=== PATIENT | female | born 1950 | race Caucasian/White ===

== ENCOUNTER → 2024-05-15 | Outpatient (CLI) | payer MEDICARE, MEDICAID, SELFPAY ==
[2024-05-15 13:01] LABS: Basophils # (Auto) 0.1 Thou/mm3 (0.0-0.2); Basophils % (Auto) 1 % (0-2.5); Eosinophils # (Auto) 0.1 Thou/mm3 (0.0-0.5); Eosinophils % (Auto) 2 % (0-10); Hematocrit 38.5 % (36.0-46.0); Hemoglobin 11.7 g/dL (12.0-16.0); Immature Granulocytes % (Auto) 0 % (0-0); Immature Granulocytes Auto 0.01 Thou/mm3 (0.00-0.00); Immature Reticulocyte Fraction 24.7 % (3.0-15.9); Lymphocytes # (Auto) 1.1 Thou/mm3 (1.0-4.8); Lymphocytes % (Auto) 27 % (10-50); Mean Corpuscular HGB Conc 30.4 g/dl (31.0-37.0); Mean Corpuscular Hemoglobin 28.3 pg (25.0-35.0); Mean Corpuscular Volume 93 fL (80-100); Monocytes # (Auto) 0.4 Thou/mm3 (0.0-0.8); Monocytes % (Auto) 9 % (0-12); Neutrophils # (Auto) 2.5 Thou/mm3 (1.8-7.7); Neutrophils % (Auto) 61 % (37-80); Nucleated Red Blood Cell % 0 /100 WBC (0); Platelet Count 316 Thou/mm3 (140-440); RDW Standard Deviation 47.9 fL (36.4-46.3); Red Blood Count 4.14 Miln/mm3 (4.00-5.20); Reticulocyte Absolute Auto 124.6 Biln/L (25.0-75.0); Reticulocyte Hgb Content 31.5 pg (28.0-35.0); White Blood Count 4.2 Thou/mm3 (3.6-11.0)
[2024-05-15 13:17] LABS: Alanine Aminotransferase 20 U/L (10-49); Albumin, Serum 4.7 gm/dL (3.4-4.8); Albumin/Globulin Ratio 2.4 (1.2-2.2); Alkaline Phosphatase 84 U/L (46-116); Anion Gap 6 (7-16); Aspartate Amino Transferase 22 U/L (0-34); BUN/Creatinine Ratio 16 Ratio (12-20); Bilirubin,Total 0.4 mg/dL (0.3-1.2); Blood Urea Nitrogen 13 mg/dL (9-23); Calcium 9.7 mg/dL (8.3-10.6); Calcium (Corrected) 9.7 mg/dL (8.5-10.1); Carbon Dioxide 25.8 mMol/L (20.0-31.0); Chloride 108 mMol/L (98-107); Creatinine (Component) 0.8 mg/dL (0.6-1.3); Glucose 121 mg/dL (74-106); Osmolality,Calculated 280 (275-295); Potassium 4.1 mMol/L (3.4-5.1); Sodium 140 mMol/L (136-145); Total Protein 6.7 gm/dL (5.7-8.2); eGFR > 60 See Note
[2024-05-15 13:21] LABS: Folate 16.35 ng/mL (>5.38); Vitamin B12 289 pg/mL (211-911)
[2024-05-15 14:04] LABS: Ferritin 22 ng/mL (7.3-270.7); Total Iron Binding Capacity 380 mcg/dL (250-425)
[2024-05-15 14:13] LABS: Iron 26 mcg/dL (50-170); Percent Iron Saturation 6 % (20-55); Unsaturated Iron Binding 354 (225-295)
== END | disposition home or self-care (01) ==
LOC: SCTO 12:04
PROVIDERS: PCP Physician Assistant; Referring Provider Nurse Practitioner Family; Visit Provider Nurse Practitioner Family
DX: D50.9 Iron deficiency anemia, unspecified (principal)
CPT/HCPCS: 36415; 80053; 82607; 82728; 82746; 83540; 83550; 85025; 85046

== ENCOUNTER 2024-05-19 14:54 | Outpatient (RCR) | payer MEDICARE, MEDICAID, SELFPAY | END 2024-05-20 23:59 | disposition home or self-care (01) | LOC: SCTC 14:54 | PROVIDERS: PCP Physician Assistant; Referring Provider Physician Assistant; Visit Provider Nurse Practitioner Family | DX: D50.9 Iron deficiency anemia, unspecified (principal); Z87.19 Personal history of other diseases of the digestive system; D73.4 Cyst of spleen | CPT/HCPCS: 99212; G0463 ==

== ENCOUNTER → 2024-06-02 | Outpatient (CLI) | payer MEDICARE, MEDICAID, SELFPAY ==
[2024-06-02 13:23] LABS: Basophils # (Auto) 0.1 Thou/mm3 (0.0-0.2); Basophils % (Auto) 2 % (0-2.5); Eosinophils # (Auto) 0.1 Thou/mm3 (0.0-0.5); Eosinophils % (Auto) 1 % (0-10); Hematocrit 28.9 % (36.0-46.0); Immature Granulocytes % (Auto) 0 % (0-0); Immature Granulocytes Auto 0.01 Thou/mm3 (0.00-0.00); Immature Reticulocyte Fraction 31.9 % (3.0-15.9); Lymphocytes # (Auto) 1.3 Thou/mm3 (1.0-4.8); Lymphocytes % (Auto) 31 % (10-50); Mean Corpuscular HGB Conc 30.1 g/dl (31.0-37.0); Mean Corpuscular Hemoglobin 27.4 pg (25.0-35.0); Mean Corpuscular Volume 91 fL (80-100); Monocytes # (Auto) 0.5 Thou/mm3 (0.0-0.8); Monocytes % (Auto) 11 % (0-12); Neutrophils # (Auto) 2.4 Thou/mm3 (1.8-7.7); Neutrophils % (Auto) 55 % (37-80); Nucleated Red Blood Cell % 0 /100 WBC (0); Platelet Count 362 Thou/mm3 (140-440); RDW Standard Deviation 46.5 fL (36.4-46.3); Red Blood Count 3.18 Miln/mm3 (4.00-5.20); Reticulocyte % (Auto) 3.7 % (0.5-1.5); Reticulocyte Absolute Auto 117.7 Biln/L (25.0-75.0); Reticulocyte Hgb Content 25.1 pg (28.0-35.0); White Blood Count 4.4 Thou/mm3 (3.6-11.0)
[2024-06-02 13:27] LABS: Hemoglobin 8.7 g/dL (12.0-16.0)
[2024-06-02 13:38] LABS: Alanine Aminotransferase 16 U/L (10-49); Albumin, Serum 4.5 gm/dL (3.4-4.8); Albumin/Globulin Ratio 2.1 (1.2-2.2); Alkaline Phosphatase 70 U/L (46-116); Anion Gap 7 (7-16); Aspartate Amino Transferase 21 U/L (0-34); BUN/Creatinine Ratio 14 Ratio (12-20); Bilirubin,Total 0.4 mg/dL (0.3-1.2); Blood Urea Nitrogen 13 mg/dL (9-23); Calcium 9.6 mg/dL (8.3-10.6); Calcium (Corrected) 9.6 mg/dL (8.5-10.1); Carbon Dioxide 26.7 mMol/L (20.0-31.0); Chloride 107 mMol/L (98-107); Creatinine (Component) 0.9 mg/dL (0.6-1.3); Globulin 2.1 gm/dL (2.3-3.5); Glucose 93 mg/dL (74-106); Osmolality,Calculated 281 (275-295); Potassium 4.7 mMol/L (3.4-5.1); Sodium 141 mMol/L (136-145); Total Protein 6.6 gm/dL (5.7-8.2); eGFR > 60 See Note
[2024-06-02 18:38] LABS: Folate 14.33 ng/mL (>5.38); Vitamin B12 277 pg/mL (211-911)
[2024-06-02 20:57] LABS: Ferritin 4 ng/mL (7.3-270.7); Iron 12 mcg/dL (50-170); Percent Iron Saturation 2 % (20-55); Total Iron Binding Capacity 413 mcg/dL (250-425); Unsaturated Iron Binding 401 (225-295)
== END | disposition home or self-care (01) ==
LOC: SCTO 12:33
PROVIDERS: PCP Physician Assistant; Referring Provider Nurse Practitioner Family; Visit Provider Nurse Practitioner Family
DX: D50.9 Iron deficiency anemia, unspecified (principal)
CPT/HCPCS: 36415; 80053; 82607; 82728; 82746; 83540; 83550; 85025; 85046

== ENCOUNTER 2024-06-10 09:58 | Outpatient (RCR) | payer MEDICARE, MEDICAID, SELFPAY | END 2024-06-20 23:59 | disposition home or self-care (01) | LOC: SCTC 09:58 | PROVIDERS: PCP Physician Assistant; Referring Provider Physician Assistant; Visit Provider Nurse Practitioner Family | DX: D50.9 Iron deficiency anemia, unspecified (principal) | CPT/HCPCS: 96365; 96375; A4216; J2919; J3490; J7040; J7050; Q0138 ==

== ENCOUNTER → 2024-08-11 | Outpatient (CLI) | payer MEDICARE, MEDICAID, SELFPAY ==
[2024-08-11 13:49] LABS: Basophils # (Auto) 0.1 Thou/mm3 (0.0-0.2); Basophils % (Auto) 2 % (0-2.5); Eosinophils # (Auto) 0.1 Thou/mm3 (0.0-0.5); Eosinophils % (Auto) 3 % (0-10); Hematocrit 31.6 % (36.0-46.0); Hemoglobin 9.3 g/dL (12.0-16.0); Immature Granulocytes % (Auto) 0 % (0-0); Immature Granulocytes Auto 0.01 Thou/mm3 (0.00-0.00); Lymphocytes % (Auto) 28 % (10-50); Mean Corpuscular HGB Conc 29.4 g/dl (31.0-37.0); Mean Corpuscular Hemoglobin 24.7 pg (25.0-35.0); Mean Corpuscular Volume 84 fL (80-100); Monocytes # (Auto) 0.3 Thou/mm3 (0.0-0.8); Monocytes % (Auto) 9 % (0-12); Neutrophils # (Auto) 2.1 Thou/mm3 (1.8-7.7); Neutrophils % (Auto) 59 % (37-80); Nucleated Red Blood Cell % 0 /100 WBC (0); Platelet Count 418 Thou/mm3 (140-440); RDW Standard Deviation 50.5 fL (36.4-46.3); Red Blood Count 3.76 Miln/mm3 (4.00-5.20); Reticulocyte % (Auto) 2.4 % (0.5-1.5); Reticulocyte Absolute Auto 89.9 Biln/L (25.0-75.0); Reticulocyte Hgb Content 19.2 pg (28.0-35.0); White Blood Count 3.6 Thou/mm3 (3.6-11.0)
[2024-08-11 14:13] LABS: Ferritin 3 ng/mL (7.3-270.7); Iron 10 mcg/dL (50-170); Percent Iron Saturation 2 % (20-55); Total Iron Binding Capacity 415 mcg/dL (250-425); Unsaturated Iron Binding 405 (225-295)
[2024-08-11 14:15] LABS: Folate 16.73 ng/mL (>5.38)
[2024-08-11 14:19] LABS: Alanine Aminotransferase 19 U/L (10-49); Albumin, Serum 4.5 gm/dL (3.4-4.8); Albumin/Globulin Ratio 2.3 (1.2-2.2); Alkaline Phosphatase 68 U/L (46-116); Anion Gap 7 (7-16); Aspartate Amino Transferase 22 U/L (0-34); BUN/Creatinine Ratio 13 Ratio (12-20); Bilirubin,Total 0.4 mg/dL (0.3-1.2); Blood Urea Nitrogen 10 mg/dL (9-23); Calcium 8.9 mg/dL (8.3-10.6); Calcium (Corrected) 8.9 mg/dL (8.5-10.1); Chloride 108 mMol/L (98-107); Creatinine (Component) 0.8 mg/dL (0.6-1.3); Glucose 104 mg/dL (74-106); Osmolality,Calculated 280 (275-295); Potassium 4.7 mMol/L (3.4-5.1); Sodium 141 mMol/L (136-145); Total Protein 6.5 gm/dL (5.7-8.2); eGFR > 60 See Note
== END | disposition home or self-care (01) ==
LOC: SCTO 12:36
PROVIDERS: PCP Physician Assistant; Referring Provider Nurse Practitioner Family; Visit Provider Nurse Practitioner Family
DX: D50.9 Iron deficiency anemia, unspecified (principal)
CPT/HCPCS: 36415; 80053; 82728; 82746; 83540; 83550; 85025; 85046

== ENCOUNTER 2024-08-14 09:57 | Outpatient (RCR) | payer MEDICARE, MEDICAID, SELFPAY | END 2024-08-18 23:59 | disposition home or self-care (01) | LOC: SCTC 09:57 | PROVIDERS: PCP Physician Assistant; Referring Provider Nurse Practitioner Family; Visit Provider Nurse Practitioner Family | DX: D50.9 Iron deficiency anemia, unspecified (principal); E53.8 Deficiency of other specified B group vitamins; Z87.19 Personal history of other diseases of the digestive system | CPT/HCPCS: 99212; G0463 ==

== ENCOUNTER 2024-09-15 13:01 | Outpatient (RCR) | payer MEDICARE, MEDICAID, SELFPAY ==
[2024-09-01 14:25] LABS: Basophils # (Auto) 0.1 Thou/mm3 (0.0-0.2); Basophils % (Auto) 1 % (0-2.5); Eosinophils # (Auto) 0.1 Thou/mm3 (0.0-0.5); Eosinophils % (Auto) 2 % (0-10); Hematocrit 30.1 % (36.0-46.0); Immature Granulocytes % (Auto) 1 % (0-0); Immature Granulocytes Auto 0.04 Thou/mm3 (0.00-0.00); Lymphocytes # (Auto) 0.9 Thou/mm3 (1.0-4.8); Lymphocytes % (Auto) 15 % (10-50); Mean Corpuscular HGB Conc 28.6 g/dl (31.0-37.0); Mean Corpuscular Hemoglobin 25.7 pg (25.0-35.0); Mean Corpuscular Volume 90 fL (80-100); Monocytes # (Auto) 0.5 Thou/mm3 (0.0-0.8); Monocytes % (Auto) 8 % (0-12); Neutrophils # (Auto) 4.3 Thou/mm3 (1.8-7.7); Neutrophils % (Auto) 73 % (37-80); Nucleated Red Blood Cell % 0 /100 WBC (0); Platelet Count 371 Thou/mm3 (140-440); RDW Standard Deviation 55.8 fL (36.4-46.3); Red Blood Count 3.35 Miln/mm3 (4.00-5.20); White Blood Count 5.9 Thou/mm3 (3.6-11.0)
[2024-09-01 14:26] LABS: Hemoglobin 8.6 g/dL (12.0-16.0)
[2024-09-08 14:41] LABS: Basophils # (Auto) 0.1 Thou/mm3 (0.0-0.2); Basophils % (Auto) 1 % (0-2.5); Eosinophils # (Auto) 0.1 Thou/mm3 (0.0-0.5); Eosinophils % (Auto) 2 % (0-10); Hematocrit 29.2 % (36.0-46.0); Hemoglobin 8.7 g/dL (12.0-16.0); Immature Granulocytes % (Auto) 1 % (0-0); Immature Granulocytes Auto 0.03 Thou/mm3 (0.00-0.00); Lymphocytes % (Auto) 20 % (10-50); Mean Corpuscular HGB Conc 29.8 g/dl (31.0-37.0); Mean Corpuscular Hemoglobin 27.5 pg (25.0-35.0); Mean Corpuscular Volume 92 fL (80-100); Monocytes # (Auto) 0.5 Thou/mm3 (0.0-0.8); Monocytes % (Auto) 9 % (0-12); Neutrophils # (Auto) 3.4 Thou/mm3 (1.8-7.7); Neutrophils % (Auto) 67 % (37-80); Nucleated Red Blood Cell % 0 /100 WBC (0); Platelet Count 370 Thou/mm3 (140-440); RDW Standard Deviation 86.1 fL (36.4-46.3); Red Blood Count 3.16 Miln/mm3 (4.00-5.20); White Blood Count 5.1 Thou/mm3 (3.6-11.0)
== END 2024-09-17 23:59 | disposition home or self-care (01) ==
LOC: SCTC 13:01
PROVIDERS: PCP Physician Assistant; Referring Provider Physician Assistant; Visit Provider Nurse Practitioner Family
DX: D50.9 Iron deficiency anemia, unspecified (principal); E53.8 Deficiency of other specified B group vitamins; D73.4 Cyst of spleen; Z87.19 Personal history of other diseases of the digestive system
CPT/HCPCS: 85025; 96365; 96372; 96375; A4216; J2919; J3420; J3490; J7040; J7050; Q0138

== ENCOUNTER → 2024-09-23 | Outpatient (CLI) | payer MEDICARE, MEDICAID, SELFPAY ==
[2024-09-23 10:32] LABS: Basophils # (Auto) 0.1 Thou/mm3 (0.0-0.2); Basophils % (Auto) 2 % (0-2.5); Eosinophils # (Auto) 0.1 Thou/mm3 (0.0-0.5); Eosinophils % (Auto) 2 % (0-10); Hematocrit 36.4 % (36.0-46.0); Hemoglobin 11.3 g/dL (12.0-16.0); Immature Granulocytes % (Auto) 0 % (0-0); Immature Granulocytes Auto 0.01 Thou/mm3 (0.00-0.00); Immature Reticulocyte Fraction 11.2 % (3.0-15.9); Lymphocytes # (Auto) 0.8 Thou/mm3 (1.0-4.8); Lymphocytes % (Auto) 27 % (10-50); Mean Corpuscular Hemoglobin 30.4 pg (25.0-35.0); Mean Corpuscular Volume 98 fL (80-100); Monocytes # (Auto) 0.3 Thou/mm3 (0.0-0.8); Monocytes % (Auto) 10 % (0-12); Neutrophils # (Auto) 1.8 Thou/mm3 (1.8-7.7); Neutrophils % (Auto) 59 % (37-80); Nucleated Red Blood Cell % 0 /100 WBC (0); Platelet Count 293 Thou/mm3 (140-440); RDW Standard Deviation 78.3 fL (36.4-46.3); Red Blood Count 3.72 Miln/mm3 (4.00-5.20); Reticulocyte % (Auto) 4.5 % (0.5-1.5); Reticulocyte Absolute Auto 166.3 Biln/L (25.0-75.0); Reticulocyte Hgb Content 34.9 pg (28.0-35.0)
[2024-09-23 10:39] LABS: Glucose Estimated Average 77 mg/dL (80-131); Hemoglobin A1C 4.3 % Hgb (4.8-6.0)
[2024-09-23 10:53] LABS: Folate 14.66 ng/mL (>5.38)
[2024-09-23 10:55] LABS: Ferritin 179 ng/mL (7.3-270.7); Iron 53 mcg/dL (50-170); Percent Iron Saturation 16 % (20-55); Total Iron Binding Capacity 314 mcg/dL (250-425); Unsaturated Iron Binding 261 (225-295)
[2024-09-23 11:00] LABS: Alanine Aminotransferase 32 U/L (10-49); Albumin, Serum 4.3 gm/dL (3.4-4.8); Albumin/Globulin Ratio 2.2 (1.2-2.2); Alkaline Phosphatase 66 U/L (46-116); Anion Gap 8 (7-16); Aspartate Amino Transferase 37 U/L (0-34); BUN/Creatinine Ratio 14 Ratio (12-20); Bilirubin,Total 0.5 mg/dL (0.3-1.2); Blood Urea Nitrogen 11 mg/dL (9-23); Calcium 8.4 mg/dL (8.3-10.6); Calcium (Corrected) 8.4 mg/dL (8.5-10.1); Carbon Dioxide 25.7 mMol/L (20.0-31.0); Chloride 110 mMol/L (98-107); Cholesterol 206 mg/dL (132-200); Creatinine (Component) 0.8 mg/dL (0.6-1.3); Glucose 109 mg/dL (74-106); HDL Cholesterol 51 mg/dL (40-60); LDL Cholesterol,Calculated 117 mg/dL (0-130); Osmolality,Calculated 287 (275-295); Sodium 144 mMol/L (136-145); Thyroid Stimulating Hormone 11.76 uIU/mL (0.55-4.78); Total Protein 6.3 gm/dL (5.7-8.2); Triglycerides 190 mg/dL (30-150); eGFR > 60 See Note
== END | disposition home or self-care (01) ==
LOC: COPL 09:50
PROVIDERS: PCP Physician Assistant; Referring Provider Physician Assistant; Visit Provider Nurse Practitioner Family
DX: Z00.00 Encounter for general adult medical examination without abnormal findings (principal); I10 Essential (primary) hypertension; D64.9 Anemia, unspecified; R53.83 Other fatigue; D50.9 Iron deficiency anemia, unspecified
CPT/HCPCS: 36415; 80053; 80061; 82728; 82746; 83036; 83540; 83550; 84443; 85025; 85046

== ENCOUNTER 2024-10-14 10:10 | Outpatient (RCR) | payer MEDICARE, MEDICAID, SELFPAY | END 2024-10-18 23:59 | disposition home or self-care (01) | LOC: SCTC 10:10 | PROVIDERS: PCP Physician Assistant; Referring Provider Physician Assistant; Visit Provider Nurse Practitioner Family | DX: D50.9 Iron deficiency anemia, unspecified (principal); E53.8 Deficiency of other specified B group vitamins; E03.9 Hypothyroidism, unspecified; D73.4 Cyst of spleen; Z87.19 Personal history of other diseases of the digestive system | CPT/HCPCS: 99212; G0463 ==

== ENCOUNTER 2024-10-17 18:28 | Emergency (ER) | payer MEDICARE, MEDICAID, SELFPAY ==
[2024-10-17 18:37] VITALS: BP 156/86; PULSE 79; RESP 18; TEMP 36.6; O2SAT 95; BMI 35.3
[2024-10-17 18:47] VITALS: PULSE 72; RESP 20
--- NOTE | 2024-10-17 18:50 | EDNOTE_ITS ---
Upper Extremity Injury RME/HPI General Chief Complaint: Extremity Injury, Upper Stated Complaint: RIGHT ARM PAIN,FALL Time Seen by Provider: 10/17/24 18:50 Arrival date/time: 10/17/24 18:28 RME / HPI RME / HPI narrative: This section includes all my notes and documentations, including HPI, PE, and ED course. Nitish Adkins MD HPI: 74 y/o female with Hx of Arthritis, Osteoporosis, Degenerative Disk Disease, Hypothyroidism, and Anemia BIBA from [facility] pool here with right wrist pain s/p fall x approximately 1 hour ago. Patient was walking down some steps to the pool when her sandal rolled causing her to trip and fall. Landed on her right arm. No head injury. No loss of conscious. No other injury. No other complaints. ROS: All negative except as documented in HPI. Physical Exam: General: Alert and oriented. Eyes: Conjunctivae and lids clear. ENT: No signs of head trauma. Neck: Supple. No tenderness. Heart: RRR. Lungs: No respiratory distress. Good air movement. No rhonchi, wheezing, rales. Chest: No tenderness. Abdomen: Soft and nontender. Normal bowel sounds. No distension. No rebound or guarding. Back: No tenderness. Skin: Warm and dry. Neuro: Alert and oriented X 3. Cranial Nerves II-XII grossly intact. No peripheral motor deficits. Musculoskeletal: Remarkable for right forearm/wrist tenderness and right foot tenderness and left shoulder tenderness. All other major joints and bones are not tender with no limited ROM. I reviewed EMS notes. I reviewed all diagnostic test results. My interpretation of the left foot x-ray is no acute fracture. My interpretation of the left shoulder x-ray is no acute fracture. My interpretation of the right forearm x-ray is fracture of distal radius. At this point, diagnoses include fracture of right wrist. Treatment here included Tylenol with Codeine, Splint. Significant improvement noted. Recommended more outpatient orthopedic treatment. Based on my best medical judgment, made decision no further evaluation or treatment indicated at this time. Patient understands and agrees to the discharge instructions customized and printed, see below. Discharge Instructions from Dr. Adkins printed for you: 1. Unfortunately, you broke your right wrist. 2. Wear the arm sling and keep the splint intact and clean and dry until cleared by a doctor taking care of you. 3. Elevate above the heart level for 3 days is much as possible. When laying on your back, place a pillow under chest and place your wrist on the pillow. 4. Ibuprofen 200 mg every 6-8 hours today and tomorrow to decrease inflammation then as needed. 5. Tylenol with codeine for pain. 6. See a private doctor on 10/20/2024. Ask for a referral to see orthopedic surgeon for further care. 7. Seek immediate medical care with intolerable pain, if you can't move your fingers, your fingers turn cold and blue, or with any concerns. Nitish Adkins MD Related Data Home Medications ?Medication ?Instructions ?Recorded ?Confirmed hydrocodone 10 mg-acetaminophen 1 tab PO Q6H PRN Pain #0 tabs 06/15/15 03/03/24 325 mg tablet Held on 03/03/24. Instructions: Resume on 03/04/24. omeprazole 40 mg capsule,delayed 40 mg PO QDAY 8 03/03/24 release levothyroxine 137 mcg tablet 112 mcg PO QDAY 05/19/19 03/03/24 (Unithroid) ondansetron 8 mg disintegrating 8 mg PO Q8H PRN Nausea And Vomiting 05/19/19 03/03/24 tablet ferrous sulfate 325 mg (65 mg 325 mg PO EVERYOTHERDAY 03/03/24 03/03/24 iron) tablet (FeroSul) linaclotide 290 mcg capsule 290 mcg PO QDAY PRN Consti pation 03/03/24 03/03/24 (Linzess) Previous Rx's ?Medication ?Instructions ?Recorded acetaminophen 300 mg-codeine 30 mg 2 tab PO Q8H PRN pa in #20 tabs 10/17/24 tablet Allergies Allergy/AdvReac Type Severity Reaction Status Date / Time wheat Allergy Severe Hives Verified 10/17/24 18:47 Review of Systems Review of Systems Systems Reviewed: All systems reviewed, normal except as documented Past Medical History Past Medical History NEUROLOGIC: Positive Transient Ischemic Attacks (TIA) CARDIAC: Positive Cardiac Disorders, Cardiac Arrhythmia, Hypercholesterolemia and Hypertension RESPIRATORY: Positive Chronic Obstructive Pulmonary Disease (COPD) and Sleep Apnea GASTROINTESTINAL: Positive Gastrointestinal Disorders, Hiatal Hernia, Gastroesophageal Reflux Disease and Obesity REPRODUCTIVE: Positive Previous Pregnancies (5) MUSCULOSKELETAL: Positive Musculoskeletal Disorders, Arthritis, Osteoporosis, Degenerative Disk Disease and Fractures (patella) ENDOCRINE: Positive Endocrine Disorders and Hypothyroidism HEMATOLOGIC: Positive Blood Disorders and Anemia PSYCHO/SOCIAL: Positive Depression, Anxiety and Post Traumatic Stress Disorder OTHER HISTORY: Positive Hospitalization and Blood Transfusions Family History FAMILY HISTORY: Positive Family Respiratory Disorders, Family Cancer and Family Surgery Surgical History SURGICAL: Positive Thyroidectomy, Abdominal Surgery, Open Reduction Internal Fixation, Hysterectomy and Tubal Ligation Social History SMOKING STATUS: Former smoker ED Exam Narrative Physical exam: Refer to HPI above Course Quality Measures none Orders Category Date Time Status Splint / Immobilizer STAT Care 10/17/24 21:10 Active XR foot comp LT min 3V Stat Exams 10/17/24 18:51 Completed XR forearm RT 2V Stat Exams 10/17/24 18:53 Completed XR shoulder LT min 2V Stat Exams 10/17/24 18:52 Completed ACETAMINOPHEN w/COD 300-30 [Tylenol w/Cod #3] Med 10/17/24 18:51 Discontinued 2 tab PO X1 ONE Vital Signs Vital signs: Vital Signs Temperature 97.9 F 10/17/24 18:37 Pulse Rate 79 10/17/24 18:37 Respiratory Rate 18 10/17/24 18:37 Blood Pressure 156/86 H 10/17/24 18:37 Pulse Oximetry (%) 95 10/17/24 18:37 Oxygen Delivery Method Room Air 10/17/24 18:37 Extremity Injury MDM Narrative MDM Narrative:: Scribe Attestation: Zoë Lara am scribing for and in the presence of Dr. Adkins. Provider Notation: Although this document has been carefully reviewed, there may still be some phonetic and other typographical errors.? These errors are purely grammatical due to imperfections in the software program and should not be construed in any way to? compromise the substance of the patient's medical care during this visit. 74 y/o female with Hx of Arthritis, Osteoporosis, Degenerative Disk Disease, Hypothyroidism, and Anemia BIBA from [facility] pool presents to ED c/o right wrist, left foot second digit, and left shoulder pain s/p fall x approximately 1 hour ago. Patient was walking down some steps to the pool when her sandal rolled causing her to trip and fall. No other complaint. Patient data External records reviewed:: [facility] previous records (Reviewed prior ED records from 11/01/23. Patient was seen for Abdominal pain.) and EMS form Clinical information provided by:: patient and EMS Social determinants that could affect healthcare access:: none Patient has the following chronic illnesses:: Transient Ischemic Attacks, Cardiac Arrhythmia, Hypercholesterolemia, Hypertens ion, Chronic Obstructive Pulmonary Disease, Sleep Apnea, Hiatal Hernia, Gastroesophageal Reflux Disease, Obesity, Arthritis, Osteoporosis, Degenerative Disk Disease, Hypothyroidism, Anemia, Depression, Anxiety and Post Traumatic Stress Disorder How is presenting disease/condition affected by chronic disease/condition?: exacerbated by Evaluation data The following diagnostics were reviewed and interpreted by me:: radiology exam(s) Lab and/or radiology exams considered but not ordered:: None Interpretation Summary: I reviewed all diagnostic test results. My interpretation of the left foot x-ray is no acute fracture. My interpretation of the left shoulder x-ray is no acute fracture. My interpretation of the right forearm x-ray is fracture of distal radius. Medications / Prescriptions Medications or Prescriptions considered but not ordered:: None Medication administrations:: Medication Administration History Discontinued Medications Acetaminophen/Codeine Phosphate (Acetaminophen W/Cod 300-30 Tablet) 2 tab PO X1 ONE Stop: 10/17/24 18:52 Last Admin: 10/17/24 19:31 Dose: 2 tab Documented By: EF Tylenol with Codeine Consultations Consultation(s) initiated? (list below): No Diagnosis Upper Extremity Injury Differential Diagnosis: sprain and strain of wrist, fracture of wrist, fracture of hand, dislocation of shoulder, fracture of humer us and fracture of clavicle Most likely diagnosis given after review of the tests above:: Fracture of right wrist Admission Indicated Admission indicated?: not indicated Explain why admission is indicated or not indicated:: With no injury needing emergent intervention, there was no indication for admission. Admission Request Was there a request for admission?: No Disposition Plan Disposition Plan: Discharge Discharge Attestation Discharge Attestation: The patient and all family members were given an opportunity to ask questions and understood the discharge instructions. Discharge instructions specifically effects, indications for sooner follow up or return to the emergency department, and the expected course of current diagnosis. Patient condition: Stable Discharge Plan Plan Patient Disposition: HOME (Self Care) Prescriptions/Referrals Prescriptions/Med Rec: New acetaminophen-codeine 300-30 mg tablet 2 tab PO Q8H MDD 6 PRN (Reason: pain) Qty: 20 0RF No Action hydrocodone-acetaminophen 10-325 mg Tablet 1 tab PO Q6H PRN (Reason: Pain) Qty: 0 omeprazole 40 mg Capsule,Delayed Release(Dr/Ec) 40 mg PO QDAY levothyroxine [Unithroid] 137 mcg tablet 112 mcg PO QDAY ondansetron 8 mg tablet,disintegrating 8 mg PO Q8H PRN (Reason: Nausea And Vomiting) ferrous sulfate [FeroSul] 325 mg (65 mg iron) tablet 325 mg PO EVERYOTHERDAY Linzess 290 mcg capsule 290 mcg PO QDAY PRN (Reason: Constipation) Problem List Clinical Impression: Fracture of right wrist Patient/Caregiver Discharge Instructions Discharge Activity: activity as tolerated Education Materials: ED Fracture, Wrist, General Additional Instructions: Discharge Instructions from Dr. Adkins printed for you: 1. Unfortunately, you broke your right wrist. 2. Wear the arm sling and keep the splint intact and clean and dry until cleared by a doctor taking care of you. 3. Elevate above the heart level for 3 days is much as possible. When laying on your back, place a pillow under chest and place your wrist on the pillow. 4. Ibuprofen 200 mg every 6-8 hours today and tomorrow to decrease inflammation then as needed. 5. Tylenol with codeine for pain. 6. See a private doctor on 10/20/2024. Ask for a referral to see orthopedic surgeon for further care. 7. Seek immediate medical care with intolerable pain, if you can't move your fingers, your fingers turn cold and blue, or with any concerns. Print Language: Argentine Stand Alone Forms: [facility] Award Info., Patient Portal Info Letter
--- NOTE | 2024-10-17 18:51 | XR_ITS ---
Examination: Foot, left, 3 views Technique: AP, oblique, lateral views foot, 3 views Date and time of exam: October 17, 2024 1931 hours INDICATIONS: Onset left foot pain today. FINDINGS: Moderate osteopenia No acute fracture No dislocation IMPRESSION: No acute fracture
--- NOTE | 2024-10-17 18:52 | XR_ITS ---
Examination: Shoulder,left, 3 views Technique: Shoulder AP internal rotation, AP external rotation, Y view shoulder, 3 views Exam date and time :October 17, 2024 1937 hours INDICATIONS: Patient fell today with individually, shoulder pain. FINDINGS: No shoulder fracture or dislocation No AC joint separation Impression: No shoulder fracture or dislocation
--- NOTE | 2024-10-17 18:53 | XR_ITS ---
Examination: Forearm, right, 2 views. Technique: Forearm, AP, lateral 2 views Date and time of exam: October 17, 2024 1931 hours INDICATIONS: Patient fell today with a fusiform, forearm pain. FINDINGS: Acute comminuted impacted intra-articular fracture distal radial metaphysis Ulna appears intact IMPRESSION: Acute comminuted impacted intra-articular fractures distal radial metaphysis
[2024-10-17] MEDS: ACETAMINOPHEN w/COD 300-30 TABLET 2 TAB PO (19:31)
[2024-10-17 23:05] VITALS: BP 148/95; PULSE 88; RESP 16; O2SAT 96
== END 2024-10-17 23:05 | disposition home or self-care (01) ==
LOC: SERX 10-18 03:54
PROVIDERS: Emergency Provider Emergency Medicine
DX: S52.571A Other intraarticular fracture of lower end of right radius, initial encounter for closed fracture (principal); M79.672 Pain in left foot; M25.512 Pain in left shoulder; W10.8XXA Fall (on) (from) other stairs and steps, initial encounter; Y93.01 Activity, walking, marching and hiking; Y92.34 Swimming pool (public) as the place of occurrence of the external cause
CPT/HCPCS: 29125; 73030; 73090; 73630; 99283; A9270

== ENCOUNTER 2024-11-18 12:50 | Observation (INO) | payer MEDICARE, MEDICAID, SELFPAY ==
[2024-11-18] VITALS (7 sets, daily range): BP systolic 90–125; BP diastolic 60–99; PULSE 79–88; RESP 15–25; TEMP 36.6–37.1; O2SAT 94–99; BMI 38.2
--- NOTE | 2024-11-18 13:34 | PD.EDRME ---
Rapid Medical Screening Exam RME Arrival date/time: 11/18/24 12:50 74-year-old female with no known medical history presents to the emergency room with a chief complaint of a hemoglobin level of 5.6. Patient was sent over by her primary care provider for a blood transfusion. I have greeted and performed a focused initial assessment of this patient. A comprehensive ED assessment and evaluation of the patient, analysis of all test results, and completion of the medical decision making process will be conducted by additional ED providers. Chief Complaint: General Adult/Misc Complain Time Seen by Provider: 11/18/24 13:18 Vital signs: Vital Signs Temperature 98.7 F 11/18/24 13:25 Pulse Rate 86 11/18/24 13:25 Respiratory Rate 18 11/18/24 13:25 Blood Pressure 90/61 11/18/24 13:25 Pulse Oximetry (%) 95 11/18/24 13:25 Oxygen Delivery Method Room Air 11/18/24 13:25 Vital signs reviewed by provider: Yes
[2024-11-18 14:41] LABS: Basophils # (Auto) 0.0 Thou/mm3 (0.0-0.2); Basophils % (Auto) 0 % (0-2.5); Eosinophils # (Auto) 0.1 Thou/mm3 (0.0-0.5); Eosinophils % (Auto) 1 % (0-10); Hematocrit 20.8 % (36.0-46.0); Immature Granulocytes Auto 0.01 Thou/mm3 (0.00-0.00); Lymphocytes # (Auto) 0.8 Thou/mm3 (1.0-4.8); Lymphocytes % (Auto) 15 % (10-50); Mean Corpuscular HGB Conc 28.8 g/dl (31.0-37.0); Mean Corpuscular Hemoglobin 24.2 pg (25.0-35.0); Mean Corpuscular Volume 84 fL (80-100); Monocytes # (Auto) 0.5 Thou/mm3 (0.0-0.8); Monocytes % (Auto) 10 % (0-12); Neutrophils # (Auto) 3.8 Thou/mm3 (1.8-7.7); Neutrophils % (Auto) 73 % (37-80); Nucleated Red Blood Cell # 0.00 Thou/mm3 (0.00-0.00); Nucleated Red Blood Cell % 0 /100 WBC (0); Platelet Count 355 Thou/mm3 (140-440); RDW Standard Deviation 58.3 fL (36.4-46.3); Red Blood Count 2.48 Miln/mm3 (4.00-5.20); White Blood Count 5.2 Thou/mm3 (3.6-11.0)
[2024-11-18 15:00] LABS: Alanine Aminotransferase 11 U/L (10-49); Albumin, Serum 4.0 gm/dL (3.4-4.8); Albumin/Globulin Ratio 2.1 (1.2-2.2); Alkaline Phosphatase 85 U/L (46-116); Anion Gap 9 (7-16); Aspartate Amino Transferase 16 U/L (0-34); BUN/Creatinine Ratio 14 Ratio (12-20); Bilirubin,Total 0.4 mg/dL (0.3-1.2); Blood Urea Nitrogen 13 mg/dL (9-23); Calcium 8.2 mg/dL (8.3-10.6); Calcium (Corrected) 8.2 mg/dL (8.5-10.1); Carbon Dioxide 24.3 mMol/L (20.0-31.0); Chloride 109 mMol/L (98-107); Creatinine (Component) 0.9 mg/dL (0.6-1.3); Estimated Creatinine Clearance 62.0 mL/min (>60); Globulin 1.9 gm/dL (2.3-3.5); Glucose 113 mg/dL (74-106); Osmolality,Calculated 284 (275-295); Potassium 4.0 mMol/L (3.4-5.1); Sodium 142 mMol/L (136-145); Total Protein 5.9 gm/dL (5.7-8.2); eGFR > 60 See Note
[2024-11-18 15:02] LABS: Hemoglobin 6.0 g/dL (12.0-16.0)
[2024-11-18 15:05] LABS: INR 1.0 (0.9-1.3); Partial Thromboplastin Time 22.5 Seconds (22.0-36.0); Prothrombin Time 10.6 Seconds (9.0-12.2)
--- NOTE | 2024-11-18 19:59 | EKG_ITS ---
[facility] Test Date: 2024-11-18 Pat Name: BASILIO HERRERA Department: Room: - Gender: Female Project Executive: : 1950 Requested By: Ester Downing Order Number: [id number] Reading MD: Ester Downing Measurements Intervals [place] Rate: 84 P: 9 MS: 160 QRS: 0 QRSD: 86 T: 30 QT: 349 QTc: 415 Interpretive Statements SINUS RHYTHM NONSPECIFIC T-WAVE ABNORMALITY Compared to ECG 02/28/2024 13:13:41 No significant changes /store/S0/[id number].pdf
--- NOTE | 2024-11-18 20:01 | PD.EDADULT ---
ED General RME/HPI General Chief complaint: General Adult/Misc Complain Stated complaint: HGB 5.6; SENT BY PCP Time Seen by Provider: 11/18/24 13:18 Arrival date/time: 11/18/24 12:50 74-year-old female with no known medical history presents to the emergency room with a chief complaint of a hemoglobin level of 5.6. She has been having fatigue and weakness. Patient was sent over by her primary care provider for a blood transfusion. She indicates she has a history of iron deficiency anemia and receives regular iron infusions. She states she has had multiple transfusions and is under the care of a associate director of nursing. She refuses to have a bone marrow biopsy for evaluation of her chronic anemia. She denies any hematemesis or melena. Mode of arrival: wheelchair RME / HPI RME / HPI narrative: 11/18/24 12:50 74-year-old female with no known medical history presents to the emergency room with a chief complaint of a hemoglobin level of 5.6. Patient was sent over by her primary care provider for a blood transfusion. I have greeted and performed a focused initial assessment of this patient. A comprehensive ED assessment and evaluation of the patient, analysis of all test results, and completion of the medical decision making process will be conducted by additional ED providers. Related Data Home Medications ?Medication ?Instructions ?Recorded ?Confirmed hydrocodone 10 mg-acetaminophen 1 tab PO Q6H PRN Pain #0 tabs 06/15/15 03/03/24 325 mg tablet Held on 03/03/24. Instructions: Resume on 03/04/24. omeprazole 40 mg capsule,delayed 40 mg PO QDAY 07/27/17 03/03/24 release levothyroxine 137 mcg tablet 112 mcg PO QDAY 05/19/19 03/03/24 (Unithroid) ondansetron 8 mg disintegrating 8 mg PO Q8H PRN Nausea And Vomiting 05/19/19 03/03/24 tablet ferrous sulfate 325 mg (65 mg 325 mg PO EVERYOTHERDAY 03/03/24 03/03/24 iron) tablet (FeroSul) linaclotide 290 mcg capsule 290 mcg PO QDAY PRN Constipation 03/03/24 03/03/24 (Linzess) Previous Rx's ?Medication ?Instructions ?Recorded acetaminophen 300 mg-codeine 30 mg 2 tab PO Q8H PRN pain #20 tabs 10/17/24 tablet Allergies Allergy/AdvReac Type Severity Reaction Status Date / Time wheat Allergy Severe Hives Verified 11/18/24 12:54 codeine Allergy Mild ITCHY Verified 11/18/24 12:54 Review of Systems Review of Systems Systems Reviewed: All systems reviewed, normal except as documented Past Medical History Past Medical History NEUROLOGIC: Positive Cerebrovascular Accident and Transient Ischemic Attacks (TIA); Negative Neurological Disorders, Seizures or Traumatic Brain Injury CARDIAC: Positive Cardiac Disorders, Cardiac Arrhythmia, Hypercholesterolemia and Hypertension; Negative Congestive Heart Failure RESPIRATORY: Positive Chronic Obstructive Pulmonary Disease (COPD) and Sleep Apnea; Negative Asthma GASTROINTESTINAL: Positive Gastrointestinal Disorders, Hiatal Hernia, Gastroesophageal Reflux Disease and Obesity GENITOURINARY: Negative Genitourinary Disorders, Renal Disease or Kidney Stones REPRODUCTIVE: Positive Previous Pregnancies MUSCULOSKELETAL: Positive Musculoskeletal Disorders, Arthritis, Osteoporosis, Degenerative Disk Disease and Fractures ENT: Negative Cataracts or Ear Infection ENDOCRINE: Positive Endocrine Disorders and Hypothyroidism; Negative Diabetes Mellitus Type 1 or Diabetes Mellitus Type 2 HEMATOLOGIC: Positive Blood Disorders and Anemia; Negative Sickle Cell Disease PSYCHO/SOCIAL: Positive Depression, Anxiety and Post Traumatic Stress Disorder OTHER HISTORY: Positive Hospitalization and Blood Transfusions; Negative Autoimmune Disease, Falls, Blood Transfusion Reaction, Anesthesia Reactions or Cancer Family History FAMILY HISTORY: Positive Family Respiratory Disorders, Family Cardiac Disorders, Family Cancer and Family Surgery; Negative Family Psychiatric Problems, Family Gastrointestinal Problems or Family Anesthesia Reaction Surgical History SURGICAL: Positive Thyroidectomy, Abdominal Surgery, Open Reduction Internal Fixation, Hysterectomy and Tubal Ligation; Negative Cardiac Surgery Social History SMOKING STATUS: Former smoker SECOND HAND EXPOSURE: Yes SUBSTANCE USE: does not use ED Exam Narrative Physical exam: Alert and oriented 74-year-old female, no acute distress. Current vitals 94/60, pulse 86, respirations 18 and nonlabored, temp 98.7, O2 sat 95% on room air. Lungs are clear, regular rate and rhythm. Pale conjunctiva noted. Course Course Course Narrative: CBC reveals a normal white count of 5.2, low H&H of 6.0 and 20.8, MCH 24.2, MCHC 28.8, platelets normal at 355. PT/INR/PTT are 10.6/1.0/22.5 respectively. CMP reveals a mildly elevated chloride of 109, mildly elevated glucose of 113, minimally low calcium of 8.2, otherwise negative. Blood bank tests reveal a blood type of O+, antibody screen negative. 3 units of PRBCs ordered and pending. Quality Measures none Orders Category Date Time Status COVID-19 Screening Questionnaire NOW Care 11/18/24 20:32 Active Restaurant Floor Manager STAT Care 11/18/24 19:59 Active Decision to Admit X1 Care 11/18/24 20:32 Active EKG (ED ONLY) *Do not use* NOW Care 11/18/24 19:59 Completed Insert IV STAT Care 11/18/24 19:59 Active Post Transfusion H&H X1 Care 11/18/24 19:59 Active Transfuse,blood/blood products ONCE Care 11/18/24 19:59 Active Transfuse,blood/blood products ONCE Care 11/18/24 20:26 Active EKG (ED Only) Stat Exams 11/18/24 19:59 Draft CBC Stat Lab 11/18/24 14:01 Completed CMP [Comprehensive Metabolic Panel] Stat Lab 11/18/24 14:01 Completed PT [Prothrombin Time with INR] Stat Lab 11/18/24 14:01 Completed PTT [Partial Thromboplastin Time] Stat Lab 11/18/24 14:01 Completed Red Blood Cells Stat Lab 11/18/24 14:01 Results Type and Screen Stat Lab 11/18/24 14:01 Results Acetaminophen Tab [Tylenol Tab] Med 11/18/24 19:59 Discontinued 650 mg PO X1 ONE DiphenhydrAMINE [Benadryl] Med 11/18/24 19:59 Discontinued 25 mg PO X1 ONE Vital Signs Vital signs: Vital Signs Temperature 98.7 F 11/18/24 13:25 Pulse Rate 86 11/18/24 13:25 Respiratory Rate 18 11/18/24 13:25 Blood Pressure 90/61 11/18/24 13:25 Pulse Oximetry (%) 95 11/18/24 13:25 Oxygen Delivery Method Room Air 11/18/24 13:25 Discharge Plan Prescriptions/Referrals Prescriptions/Med Rec: No Action hydrocodone-acetaminophen 10-325 mg Tablet 1 tab PO Q6H PRN (Reason: Pain) Qty: 0 omeprazole 40 mg Capsule,Delayed Release(Dr/Ec) 40 mg PO QDAY levothyroxine [Unithroid] 137 mcg tablet 112 mcg PO QDAY ondansetron 8 mg tablet,disintegrating 8 mg PO Q8H PRN (Reason: Nausea And Vomiting) ferrous sulfate [FeroSul] 325 mg (65 mg iron) tablet 325 mg PO EVERYOTHERDAY Linzess 290 mcg capsule 290 mcg PO QDAY PRN (Reason: Constipation) acetaminophen-codeine 300-30 mg tablet 2 tab PO Q8H MDD 6 PRN (Reason: pain) Qty: 20 0RF Referrals: Irais Acosta PA-C [Primary Care Provider] - In 1 week Patient/Caregiver Discharge Instructions Print Language: Upper Sorbian [facility] Clinical Information Provided by patient Medical Records Reviewed [facility] Meds/Rx Considered, not Ordered None Labs/Rad/Tests considered, not Ordered None Chronic Illness/Social Conditions which may negatively complicate care or outcome(s)-explain: None or not applicable EKG EKG not done Lab Interpretation Lab(s) interpretation(s): CBC reveals a normal white count of 5.2, low H&H of 6.0 and 20.8, MCH 24.2, MCHC 28.8, platelets normal at 355. PT/INR/PTT are 10.6/1.0/22.5 respectively. CMP reveals a mildly elevated chloride of 109, mildly elevated glucose of 113, minimally low calcium of 8.2, otherwise negative. Blood bank tests reveal a blood type of O+, antibody screen negative. Discussed case with Dr. Guillory who recommends admission due to the length of time it will take for transfusion of 3 units. Discussed case with resident hospitalist who will discuss the case with her attending. Imaging Imaging interpretation: none Medication Administration(s) Medication Administration History Discontinued Medications Acetaminophen (Acetaminophen 325 Mg Tablet) 650 mg PO X1 ONE Stop: 11/18/24 20:00 Diphenhydramine HCl (Diphenhydramine 25 Mg Capsule) 25 mg PO X1 ONE Stop: 11/18/24 20:00 Acetaminophen 650 mg and diphenhydramine 25 mg p.o. prior to administration of blood products. Diagnosis Differential diagnosis: Iron deficiency anemia, blood loss anemia, myelodysplastic syndrome. Most likely dx, and/or detailed dx discussion: Iron deficiency anemia with possibility of myelodysplastic syndrome Dispositon Disposition: Admit Disposition comments: Due to length of time of 3 units of packed red blood cells, the decision was made to admit.
--- NOTE | 2024-11-18 21:27 | ESHP_ITS ---
<Statement entered by Fransisco Villanueva MD - 11/19/24 03:08> I have personally seen and examined the patient. I agree with the resident's assessment and plan as documented below. Fransisco Villanueva DO PGY-2 Internal Medicine - [facility] Documentation for date of: 11/18/24 HPI History of Present Illness Chief complaint: fatigue History of present illness: Martha Stanley is a 74F pmhx significant for iron deficiency anemia and HTN who presents from PCP office with extreme fatigue and Hgb of 5.6. Patient reports progressive extreme fatigue with decreased appetite for the past 4 days and visited PCP earlier today. Hgb in office was 5.6 and patient was instructed to go to ED. Has a hx of numerous iron transfusions for iron deficiency anemia, last transfusion being in September. States she has no set schedule, and receives them only when symptomatic. Fractured Rt wrist late September due to a mechanical fall requiring surgery on 10/24. Patient reports chronic back pain (took Wilton@ 1999) but denies chest pain, SOB or fever. In ED, BP 90/61, Hgb 6.0, PT/INR wnl, glucose 113. In ED, given Pregabalin 150 mg, and 3 units of pRBC ordered. PMHx: ANETTE, HTN, h/o remote CVA not on medication, h/o ovarian cancer s/p hysterectomy, chronic back pain Surgical Hx: thyroidectomy, remote hysterectomy, patella replacement, remote back surgery FHx: mother ovarian cancer. Father pancreatic cancer. Sister breast cancer. Social Hx: quit smoking 30 y/a, seldom alcohol consumption, CBD gummies for sleep ~1/week Home medications: Zofran 4 mg prn, Lisinopril 40 mg QD, Pregabalin 150 mg QD, Levothyroxine 88 mcg QD, Wilton 7.5 mg TID Patient was admitted for further workup. Review of Systems Review of Systems Systems Reviewed: All systems reviewed, normal except as documented Exam Vital Signs Temp Pulse Resp BP Pulse Ox O2 Del Method 98.5 F 85 25 H 116/99 H 97 Room Air 11/18/24 20:47 11/18/24 20:47 11/18/24 20:47 11/18/24 20:47 11/18/24 20:47 11/18/24 20:47 Narrative Exam General: AOx3, no acute distress HEENT: NC/AT, mucous membranes moist, bilateral sclera anicteric Cardiovascular: regular rate and rhythm, S1/S2 present, no murmurs appreciated Pulmonary: clear to auscultation bilaterally, no rales/rhonchi/wheezes Abdominal: soft, non-tender, non-distended, no rebound/guarding, bowel sounds present Extremities: no peripheral edema, Rt wrist in hard splint Skin: warm and dry, intact, no rashes Neuro CN II-XII grossly intact, no focal deficits, alert, following commands Results: Labs 11/18/24 14:01 11/18/24 14:01 Labs: Short CBC 11/18/24 Range/Units 14:01 WBC 5.2 (3.6-11.0) Thou/mm3 Hgb 6.0 L* (12.0-16.0) g/dL Hct 20.8 L* (36.0-46.0) % Plt Count 355 (140-440) Thou/mm3 BMP 11/18/24 14:01 Sodium 142 Potassium 4.0 Chloride 109 H Carbon Dioxide 24.3 BUN 13 Creatinine 0.9 Glucose 113 H Calcium 8.2 L Liver Function 11/18/24 Range/Units 14:01 Total Bilirubin 0.4 (0.3-1.2) mg/dL AST 16 (0-34) U/L ALT 11 (10-49) U/L Alkaline Phosphatase 85 (46-116) U/L Albumin 4.0 (3.4-4.8) gm/dL Quality Measures Quality Measures none Advance care planning discussed with:: patient Medications Home Medications and Allergies Home Medications ?Medication ?Instructions ?Recorded ?Confirmed ?Type hydrocodone 10 mg-acetaminophen 1 tab PO Q6H PRN Pain #0 tabs 06/15/15 11/18/24 History 325 mg tablet Held on 03/03/24. Instructions: Resume on 03/04/24. ondansetron 8 mg disintegrating 8 mg PO Q8H PRN Nausea And Vomiting 05/19/19 11/18/24 History tablet linaclotide 290 mcg capsule 290 mcg PO QDAY PRN Consti pation 03/03/24 11/18/24 History (Linzess) hydrocodone 7.5 mg-acetaminophen 1 tab PO TID 11/18/24 11/18/24 History 325 mg tablet levothyroxine 88 mcg tablet 88 mcg PO DAILY 11/18/24 0 11/18/24 History lisinopril 40 mg tablet 40 mg PO DAILY 11/18/2406/14 History pregabalin 150 mg capsule (Lyrica) 150 mg PO HS 11/18/24 History Allergies Allergy/AdvReac Type Severity Reaction Status Date / Time wheat Allergy Severe Hives Verified 11/18/24 12:54 codeine Allergy Mild ITCHY Verified 11/18/24 12:54 Visit Medications Discontinued Medications Acetaminophen (Acetaminophen 325 Mg Tablet) 650 mg PO X1 ONE Stop: 11/18/24 20:00 Last Admin: 11/18/24 20:55 Dose: Not Given Diphenhydramine HCl (Diphenhydramine 25 Mg Capsule) 25 mg PO X1 ONE Stop: 11/18/24 20:00 Last Admin: 11/18/24 20:55 Dose: Not Given Assessment & Plan Plan Martha Stanley is a 74F pmhx significant for iron deficiency anemia and HTN who presents from PCP office with extreme fatigue and Hgb of 5.6. # Symptomatic iron deficiency anemia On admission Hgb 6.0 with hx of repeated iron transfusions, as well as occasional blood. Patient refuses further investigation of ANETTE such as bone marrow biopsy. - Ordered 3 units pRBC - [employer] - Zofran prn - F/u AM CBC, BMP, PT/INR, and TSH # Chronic back pain Patient reports chronic back pain with home regimen Wilton 7.5 TID. - Start Wilton 7.5 q8h # Neuropathic pain # Rt wrist fracture s/p repair Patient reports recent Rt wrist surgery and takes Pregabalin 150 mg QD. - Start Pregabalin 150 mg QD Hospital management: Disposition: observation for blood transfusion Diet: Cardiac diet DVT prophylaxis: SCDs CODE STATUS: Full code Plan of care discussed with attending Dr. Rivera, and PGY-2 Dr. Villanueva. Ariadna Vital, PGY-1 Attending Provider Attestation/Addendum 74-year-old female with history of anemia complains of fatigue and weakness. She has been sleepy according to family members at bedside. Patient was found to have a low hemoglobin of 5.6. She will be admitted for symptomatic anemia. She will receive PRBC. Discussed with housestaff
--- NOTE | 2024-11-18 23:20 | PC.NURSE ---
PATIENT ALERT AND ORIENTED X4, REQUEST SOMETHING TO EAT. DAUGHTER AT BEDSIDE.
[2024-11-19] VITALS (12 sets, daily range): BP systolic 101–126; BP diastolic 66–86; PULSE 66–84; RESP 16–27; TEMP 36.2–37.2; O2SAT 94–99
[2024-11-19] MEDS: PREGABALIN 50 MG CAPSULE 150 MG PO (00:38)
[2024-11-19] MEDS: ONDANSETRON INJ 2 MG/ML INJ 2 ML 4 MG IVP (01:42)
[2024-11-19] MEDS: HYDROcodone/APAP 7.5/325 TABLET 1 TAB PO (04:41)
[2024-11-19] MEDS: LEVOTHYROXINE SODIUM 88 MCG TABLET PO (05:00)
--- NOTE | 2024-11-19 05:40 | PC.NURSE ---
DR. GAYTAN APPROVED FOR AM LABS TO BE DRAW WITH POST H&H TRANSFUSION. LAB MADE AWARE.
[2024-11-19 09:05] LABS: Basophils # (Auto) 0.0 Thou/mm3 (0.0-0.2); Basophils % (Auto) 1 % (0-2.5); Eosinophils # (Auto) 0.1 Thou/mm3 (0.0-0.5); Eosinophils % (Auto) 2 % (0-10); Hematocrit 30.2 % (36.0-46.0); Hemoglobin 10.0 g/dL (12.0-16.0); Immature Granulocytes Auto 0.01 Thou/mm3 (0.00-0.00); Lymphocytes # (Auto) 1.0 Thou/mm3 (1.0-4.8); Lymphocytes % (Auto) 24 % (10-50); Mean Corpuscular HGB Conc 33.1 g/dl (31.0-37.0); Mean Corpuscular Hemoglobin 26.7 pg (25.0-35.0); Mean Corpuscular Volume 81 fL (80-100); Monocytes # (Auto) 0.3 Thou/mm3 (0.0-0.8); Monocytes % (Auto) 8 % (0-12); Neutrophils # (Auto) 2.7 Thou/mm3 (1.8-7.7); Neutrophils % (Auto) 65 % (37-80); Nucleated Red Blood Cell # 0.00 Thou/mm3 (0.00-0.00); Nucleated Red Blood Cell % 0 /100 WBC (0); Platelet Count 334 Thou/mm3 (140-440); RDW Standard Deviation 53.2 fL (36.4-46.3); Red Blood Count 3.74 Miln/mm3 (4.00-5.20); White Blood Count 4.1 Thou/mm3 (3.6-11.0)
[2024-11-19 09:34] LABS: Ferritin 4 ng/mL (7.3-270.7); Iron 11 mcg/dL (50-170); Percent Iron Saturation 2 % (20-55); Total Iron Binding Capacity 401 mcg/dL (250-425); Unsaturated Iron Binding 390 (225-295)
[2024-11-19 09:35] LABS: Anion Gap 7 (7-16); BUN/Creatinine Ratio 16 Ratio (12-20); Blood Urea Nitrogen 14 mg/dL (9-23); Calcium 8.2 mg/dL (8.3-10.6); Carbon Dioxide 26.1 mMol/L (20.0-31.0); Chloride 107 mMol/L (98-107); Creatinine (Component) 0.9 mg/dL (0.6-1.3); Estimated Creatinine Clearance 62.1 mL/min (>60); Free T4 (Free Thyroxine) 1.32 ng/dL (0.89-1.76); Glucose 147 mg/dL (74-106); Magnesium 1.9 mg/dL (1.6-2.6); Osmolality,Calculated 282 (275-295); Phosphorous 3.6 mg/dL (2.4-5.1); Potassium 4.1 mMol/L (3.4-5.1); Sodium 140 mMol/L (136-145); Thyroid Stimulating Hormone 5.15 uIU/mL (0.55-4.78); eGFR > 60 See Note
[2024-11-19] MEDS: ACETAMINOPHEN 325 MG TABLET 650 MG PO (10:34)
[2024-11-19] MEDS: IRON SUCROSE CPLX INJ 20 MG/ML VIAL 5 ML 200 MG IVP (10:36)
--- NOTE | 2024-11-19 10:41 | ESDS_ITS ---
<Statement entered by Lucina Jones MD - 11/20/24 16:05> I have reviewed the note and agree with the resident's assessment & plan with exceptions as below. I have personally reviewed labs, imaging, home meds/prior records, examined the patient, formulated and discussed management plan with the IM team. Pt admitted for acute blood loss anemia and symptomatic anemia. Patient will require further workup with hematology, hemoglobin stable at 3 PRBCs transfusion while admitted. Patient has had extensive workup from a GI perspective and also hematology perspective. Patient was discharged with the following instructions noted in the discharge summary. Lucina Jones, PGY-2 Planned Discharge Date 11/19/24 DS: Providers Provider Date of admission: 11/18/24 21:20 Primary care physician: Irais Acosta PA-C Admitting Provider: Guy Rivera MD Attending Provider on Admission: Kavya Singh MD Attending Provider on DC: Kavya Singh MD Discharging Provider: Kavya Singh MD DS: Diagnosis Problem List Completed Was Problem List Reviewed/Reconciled?: Yes Hospital Course Hospital Course Hospital course: Martha is a 74F with past medical hx significant for iron deficiency anemia and HTN who was admitted for acute blood loss anemia and symptomatic iron deficiency anemia. Patient was sent in from her PCP to the ED for further evaluation. Patient came to the ED with a blood pressure of 90/61. Patient was worked up was found to have Hgb 6.0, PT/INR wnl, glucose 113, TSH 5.15, free T4 1.32. Blood transfusion was initiated in ED, medicine was consulted and patient admitted to the floors. While admitted on the floors, patient received 3 units of packed PRBCs and post H&H transfusion showed hemoglobin of 10. While admitted, patient reported extensive workup for her anemia including GI workup with EGD and colonoscopy. She denied having any capsule endoscopy and stated that she is working with hematology for her anemia. Patient was found to have hyperlipidemia with a cholesterol level above 200 and was started on Lipitor 40 mg. With clinical improvement patient was then discharged home with oral iron and vitamin C and the following instructions: Discharge Instructions: Follow up with PCP within one week Consider GI referral with your PCP for further evaluation of your anemia Take medicines as prescribed We are recommending a statin, Lipitor 40 mg as you have history of stroke Discuss with your PCP risks and benefits of starting Aspirin due to your history of stroke and your anemia Take Vitamin C and Iron as prescribed Avoid any NSAIDs including Motrin (Advil/Ibuprofen), Aleeve (Naproxen) Follow up with your PCP in regard to your thyroid lab, TSH was elevated in the hospital, Free Thyroxine was normal Return to ER if your symptoms worsen or return Problem List: #Symptomatic iron deficiency anemia #Acute blood loss anemia #Subclinical hypothyroidism #Chronic back pain #Neuropathic pain #Rt wrist fracture s/p repair #Hyperlipidemia Patient seen and care discussed with my attending physician, Dr. Singh and my senior resident, Dr. Robert Jaramillo, PGY-1 Time Spent with Patient Time attestation: Total time spent providing and/or coordinating discharge services: Time spent: Less than 30 minutes Exam Vital Signs Temp Pulse Resp BP Pulse Ox O2 Del Method 97.1 F 71 18 115/86 H 96 Room Air 11/19/24 08:00 11/19/24 08:00 11/19/24 08:00 11/19/24 08:00 11/19/24 08:00 11/19/24 08:00 Narrative Exam General: AOx3, no acute distress HEENT: NC/AT, mucous membranes moist, bilateral sclera anicteric Cardiovascular: regular rate and rhythm, S1/S2 present, no murmurs appreciated Pulmonary: clear to auscultation bilaterally, no rales/rhonchi/wheezes Abdominal: soft, non-tender, non-distended, no rebound/guarding, bowel sounds present Extremities: no peripheral edema, Rt wrist in hard splint Skin: warm and dry, intact, no rashes Neuro CN II-XII grossly intact, no focal deficits, alert, following commands Discharge Plan Plan Patient Disposition: HOME (Self Care) Patient condition on transfer: Stable Care Plan Goals: Discharge Instructions: Follow up with primary care provider within one week Consider GI referral with your primary care provider for further evaluation of your anemia Take medicines as prescribed We are recommending a statin, Lipitor 40 mg as you have history of stroke Discuss with your primary care provider risks and benefits of starting Aspirin due to your history of stroke and your anemia Take Vitamin C and Iron as prescribed Avoid any NSAIDs including Motrin (Advil/Ibuprofen), Aleeve (Naproxen) Follow up with your primary care provider in regard to your thyroid lab, TSH was elevated in the hospital, Free Thyroxine was normal Return to ER if your symptoms worsen or return Prescriptions/Referrals Prescriptions/Med Rec: New atorvastatin [Lipitor] 40 mg tablet 40 mg PO QPM 30 Days Qty: 30 0RF Rx Instructions: Take one tablet by mouth at bedtime ferrous sulfate 325 mg (65 mg iron) tablet 325 mg PO Q OTHER DAY 30 Days Qty: 15 0RF Rx Instructions: Take one tablet by mouth every other day ascorbic acid (vitamin C) [Vitamin C] 500 mg tablet 500 mg PO QDAY 30 Days Qty: 30 0RF Rx Instructions: Take one tablet by mouth every day Continued ondansetron 8 mg tablet,disintegrating 8 mg PO Q8H PRN (Reason: Nausea And Vomiting) Linzess 290 mcg capsule 290 mcg PO QDAY PRN (Reason: Constipation) levothyroxine 88 mcg tablet 88 mcg PO DAILY pregabalin [Lyrica] 150 mg capsule 150 mg PO HS Patient Comments: Take 1 capsule by mouth every twelve hours as needed for pain lisinopril 40 mg tablet 40 mg PO DAILY hydrocodone-acetaminophen 7.5-325 mg tablet 1 tab PO TID Discontinued hydrocodone-acetaminophen 10-325 mg Tablet 1 tab PO Q6H PRN (Reason: Pain) Qty: 0 Referrals: Irais Acosta PA-C [Primary Care Provider] - Patient/Caregiver Discharge Instructions Discharge Activity: activity as tolerated Education Materials: Anemia, Anemia Iron Deficiency Ch, ED Anemia, Iron- Deficiency (Adult) Print Language: Stateless Stand Alone Forms: Adriana Award Info., Patient Portal Info Letter, Work/Release Restrictions Discharge Order Discharge Orders: Discharge (Routine); Ordered 11/19/24 Ordered By: Lucina Jones Quality Discharge Quality Measures VTE prophylaxis (SCDs) and none Attestestation MD Attestation I attest that I was physically present for the evaluation, physical examination, lab and imaging review of the patient with the residents. I discussed the case with the residents and agree with the findings and plans of care as documented above. Kavya Singh MD
== END 2024-11-19 12:08 | disposition home or self-care (01) ==
LOC: SERX 14:39 → SERHOLD 11-19 08:30 → S3SX 11-19 08:30
PROVIDERS: Nurse Practitioner Family; Admitting Provider Internal Medicine; Emergency Provider Emergency Medicine; PCP Physician Assistant; Visit Provider Student in an Organized Health Care Education/Training Program
DX: D50.9 Iron deficiency anemia, unspecified (principal); E78.5 Hyperlipidemia, unspecified; G89.29 Other chronic pain; I10 Essential (primary) hypertension; S62.101D Fracture of unspecified carpal bone, right wrist, subsequent encounter for fracture with routine healing; Z80.3 Family history of malignant neoplasm of breast; Z86.73 Personal history of transient ischemic attack (TIA), and cerebral infarction without residual deficits; Z87.891 Personal history of nicotine dependence; Z90.710 Acquired absence of both cervix and uterus; Z01.810 Encounter for preprocedural cardiovascular examination
CPT/HCPCS: 36415; 36430; 80048; 80053; 82728; 83540; 83550; 83735; 84100; 84439; 84443; 85014; 85018; 85025; 85610; 85730; 86850; 86900; 86901; 86902; 86921; 86922; 93005; 94762; 96374; 96375; 99285; G0378; J1756; J2405; P9016; A9270

== ENCOUNTER 2024-12-16 12:59 | Outpatient (RCR) | payer MEDICARE, MEDICAID, SELFPAY | END 2024-12-18 23:59 | disposition home or self-care (01) | LOC: SCTC 12:59 | PROVIDERS: Referring Provider Nurse Practitioner Family; Visit Provider Nurse Practitioner Family | DX: D50.9 Iron deficiency anemia, unspecified (principal); E53.8 Deficiency of other specified B group vitamins; E03.9 Hypothyroidism, unspecified; I85.00 Esophageal varices without bleeding; D73.4 Cyst of spleen | CPT/HCPCS: 96365; 96372; J3420; J7040; J7050; Q0138 ==

== ENCOUNTER → 2024-12-22 | Outpatient (CLI) | payer MEDICARE, MEDICAID, SELFPAY ==
[2024-12-22 14:41] LABS: Basophils # (Auto) 0.0 Thou/mm3 (0.0-0.2); Basophils % (Auto) 1 % (0-2.5); Eosinophils # (Auto) 0.0 Thou/mm3 (0.0-0.5); Eosinophils % (Auto) 1 % (0-10); Hematocrit 40.2 % (36.0-46.0); Hemoglobin 12.3 g/dL (12.0-16.0); Immature Granulocytes Auto 0.01 Thou/mm3 (0.00-0.00); Immature Reticulocyte Fraction 11.6 % (3.0-15.9); Lymphocytes # (Auto) 1.0 Thou/mm3 (1.0-4.8); Lymphocytes % (Auto) 28 % (10-50); Mean Corpuscular HGB Conc 30.6 g/dl (31.0-37.0); Mean Corpuscular Hemoglobin 29.1 pg (25.0-35.0); Mean Corpuscular Volume 95 fL (80-100); Monocytes # (Auto) 0.3 Thou/mm3 (0.0-0.8); Monocytes % (Auto) 7 % (0-12); Neutrophils # (Auto) 2.2 Thou/mm3 (1.8-7.7); Neutrophils % (Auto) 62 % (37-80); Nucleated Red Blood Cell # 0.00 Thou/mm3 (0.00-0.00); Nucleated Red Blood Cell % 0 /100 WBC (0); Platelet Count 215 Thou/mm3 (140-440); RDW Standard Deviation 71.7 fL (36.4-46.3); Red Blood Count 4.22 Miln/mm3 (4.00-5.20); Reticulocyte % (Auto) 2.9 % (0.5-1.5); Reticulocyte Absolute Auto 123.2 Biln/L (25.0-75.0); Reticulocyte Hgb Content 36.9 pg (28.0-35.0); White Blood Count 3.5 Thou/mm3 (3.6-11.0)
[2024-12-22 14:57] LABS: Alanine Aminotransferase 28 U/L (10-49); Albumin, Serum 4.4 gm/dL (3.4-4.8); Albumin/Globulin Ratio 2.2 (1.2-2.2); Alkaline Phosphatase 70 U/L (46-116); Anion Gap 10 (7-16); Aspartate Amino Transferase 39 U/L (0-34); BUN/Creatinine Ratio 8 Ratio (12-20); Bilirubin,Total 0.5 mg/dL (0.3-1.2); Blood Urea Nitrogen 6 mg/dL (9-23); Calcium 8.9 mg/dL (8.3-10.6); Calcium (Corrected) 8.9 mg/dL (8.5-10.1); Carbon Dioxide 23.1 mMol/L (20.0-31.0); Chloride 108 mMol/L (98-107); Creatinine (Component) 0.8 mg/dL (0.6-1.3); Globulin 2.0 gm/dL (2.3-3.5); Glucose 97 mg/dL (74-106); Osmolality,Calculated 278 (275-295); Potassium 4.1 mMol/L (3.4-5.1); Sodium 141 mMol/L (136-145); Total Protein 6.4 gm/dL (5.7-8.2); eGFR > 60 See Note
[2024-12-22 15:00] LABS: Ferritin 402 ng/mL (7.3-270.7); Folate > 24.00 ng/mL (>5.38); Iron 124 mcg/dL (50-170); Percent Iron Saturation 40 % (20-55); Total Iron Binding Capacity 304 mcg/dL (250-425); Unsaturated Iron Binding 180 (225-295)
[2024-12-28 13:48] LABS: Albumin 4.4 g/dL (3.8-4.8); Alpha-1-Globulin 0.2 g/dL (0.2-0.3); Alpha-2-Globulin 0.6 g/dL (0.5-0.9); Beta-1-Globulin 0.4 g/dL (0.4-0.6); Beta-2-globulin 0.3 g/dL (0.2-0.5); Gamma Globulin 0.6 g/dL (0.8-1.7); Immunoglobulin A 87 mg/dL (70-320); Immunoglobulin G 624 mg/dL (600-1540); Kappa Light Chain, Free 14.4 mg/L (3.3-19.4); Lambda Light Chain, Free 12.7 mg/L (5.7-26.3)
[2024-12-29 14:42] LABS: Beta 2 Microglobulin 1.83 mg/L (< OR = 2.51); Immunoglobulin M 91 mg/dL (50-300); Kappa/Lambda, Free Ratio 1.13 (0.26-1.65); Protein, total, serum 6.6 g/dL (6.1-8.1)
== END | disposition home or self-care (01) ==
PROVIDERS: PCP Physician Assistant; Referring Provider Nurse Practitioner Family; Visit Provider Nurse Practitioner Family
DX: D50.9 Iron deficiency anemia, unspecified (principal)
CPT/HCPCS: 36415; 80053; 82232; 82728; 82746; 82784; 83521; 83540; 83550; 84155; 84165; 85025; 85046; 86334

== ENCOUNTER 2024-12-25 15:59 | Outpatient (RCR) | payer MEDICARE, MEDICAID, SELFPAY | END 2025-01-18 23:59 | disposition home or self-care (01) | LOC: SCTC 15:59 | PROVIDERS: Referring Provider Nurse Practitioner Family; Visit Provider Nurse Practitioner Family | DX: D50.9 Iron deficiency anemia, unspecified (principal); E53.8 Deficiency of other specified B group vitamins; I85.00 Esophageal varices without bleeding; D73.4 Cyst of spleen; E03.9 Hypothyroidism, unspecified | CPT/HCPCS: 99212; G0463 ==

== ENCOUNTER → 2025-02-24 | Outpatient (CLI) | payer MEDICARE, MEDICAID, SELFPAY ==
[2025-02-24 10:23] LABS: Basophils # (Auto) 0.0 Thou/mm3 (0.0-0.2); Basophils % (Auto) 1 % (0-2.5); Eosinophils # (Auto) 0.0 Thou/mm3 (0.0-0.5); Eosinophils % (Auto) 1 % (0-10); Hematocrit 40.5 % (36.0-46.0); Hemoglobin 12.8 g/dL (12.0-16.0); Immature Granulocytes Auto 0.01 Thou/mm3 (0.00-0.00); Immature Reticulocyte Fraction 19.4 % (3.0-15.9); Lymphocytes # (Auto) 0.9 Thou/mm3 (1.0-4.8); Lymphocytes % (Auto) 19 % (10-50); Mean Corpuscular HGB Conc 31.6 g/dl (31.0-37.0); Mean Corpuscular Hemoglobin 29.8 pg (25.0-35.0); Mean Corpuscular Volume 94 fL (80-100); Monocytes # (Auto) 0.4 Thou/mm3 (0.0-0.8); Monocytes % (Auto) 8 % (0-12); Neutrophils # (Auto) 3.4 Thou/mm3 (1.8-7.7); Neutrophils % (Auto) 72 % (37-80); Nucleated Red Blood Cell # 0.00 Thou/mm3 (0.00-0.00); Nucleated Red Blood Cell % 0 /100 WBC (0); Platelet Count 251 Thou/mm3 (140-440); RDW Standard Deviation 45.1 fL (36.4-46.3); Red Blood Count 4.29 Miln/mm3 (4.00-5.20); Reticulocyte % (Auto) 2.1 % (0.5-1.5); Reticulocyte Absolute Auto 90.5 Biln/L (25.0-75.0); Reticulocyte Hgb Content 31.1 pg (28.0-35.0); White Blood Count 4.7 Thou/mm3 (3.6-11.0)
[2025-02-24 10:45] LABS: Alanine Aminotransferase 23 U/L (10-49); Albumin, Serum 4.6 gm/dL (3.4-4.8); Albumin/Globulin Ratio 2.4 (1.2-2.2); Alkaline Phosphatase 82 U/L (46-116); Anion Gap 8 (7-16); Aspartate Amino Transferase 23 U/L (0-34); BUN/Creatinine Ratio 16 Ratio (12-20); Bilirubin,Total 0.4 mg/dL (0.3-1.2); Blood Urea Nitrogen 13 mg/dL (9-23); Calcium 9.4 mg/dL (8.3-10.6); Calcium (Corrected) 9.4 mg/dL (8.5-10.1); Carbon Dioxide 26.1 mMol/L (20.0-31.0); Chloride 108 mMol/L (98-107); Creatinine (Component) 0.8 mg/dL (0.6-1.3); Globulin 1.9 gm/dL (2.3-3.5); Glucose 92 mg/dL (74-106); LDH (Lactate Dehydrogenase) 203 U/L (120-246); Osmolality,Calculated 283 (275-295); Potassium 4.3 mMol/L (3.4-5.1); Sodium 142 mMol/L (136-145); Total Protein 6.5 gm/dL (5.7-8.2); eGFR > 60 See Note
[2025-02-24 10:48] LABS: Folate 13.97 ng/mL (>5.38); Vitamin B12 332 pg/mL (211-911)
[2025-02-24 11:21] LABS: Ferritin 10 ng/mL (7.3-270.7); Iron 25 mcg/dL (50-170); Percent Iron Saturation 6 % (20-55); Total Iron Binding Capacity 380 mcg/dL (250-425); Unsaturated Iron Binding 355 (225-295)
[2025-03-04 06:31] LABS: Haptoglobin* 143 mg/dL (43-212)
== END | disposition home or self-care (01) ==
LOC: SCTO 08:59
PROVIDERS: PCP Physician Assistant; Referring Provider Nurse Practitioner Family; Visit Provider Nurse Practitioner Family
DX: D50.9 Iron deficiency anemia, unspecified (principal)
CPT/HCPCS: 36415; 80053; 82607; 82728; 82746; 83010; 83540; 83550; 83615; 85025; 85046

== ENCOUNTER 2025-03-02 14:37 | Outpatient (RCR) | payer MEDICARE, MEDICAID, SELFPAY | END 2025-03-20 23:59 | disposition home or self-care (01) | LOC: SCTC 14:37 | PROVIDERS: Referring Provider Nurse Practitioner Family; Visit Provider Nurse Practitioner Family | DX: D50.9 Iron deficiency anemia, unspecified (principal); D73.4 Cyst of spleen; E03.9 Hypothyroidism, unspecified; E53.8 Deficiency of other specified B group vitamins; Z87.19 Personal history of other diseases of the digestive system | CPT/HCPCS: 99212; G0463 ==

== ENCOUNTER 2025-04-13 13:17 | Outpatient (RCR) | payer MEDICARE, MEDICAID, SELFPAY | END 2025-04-19 23:59 | disposition home or self-care (01) | LOC: SCTC 13:17 | PROVIDERS: PCP Physician Assistant; Referring Provider Nurse Practitioner Family; Visit Provider Nurse Practitioner Family | DX: D50.9 Iron deficiency anemia, unspecified (principal); E53.8 Deficiency of other specified B group vitamins; Z87.19 Personal history of other diseases of the digestive system; D73.4 Cyst of spleen; E03.9 Hypothyroidism, unspecified | CPT/HCPCS: 96365; 96372; A4216; J3420; J3490; J7040; Q0138 ==